=== PATIENT | female | born 1995 | race African-American/Black ===

== ENCOUNTER 2021-06-18 14:53 | Observation (INO) | payer MEDICAID ==
[~2021-06-18] VITALS: Ht 170.2 cm; Wt 72.6 kg
[2021-06-18] MEDS ORDERED: RHO(D) IMMUNE GLOBULIN 300 MCG/SYR IM NR (16:15)
== END 2021-06-18 17:20 | disposition home or self-care (01) ==
LOC: 8 EST LDRP 14:53
PROVIDERS: ADMIT Obstetrics & Gynecology; ATTEND Obstetrics & Gynecology
DX: O26.893 Other specified pregnancy related conditions, third trimester (principal); Z29.13 Encounter for prophylactic Rho(D) immune globulin; Z3A.33 33 weeks gestation of pregnancy
CPT/HCPCS: 36415; 59025; 86850; 86900; 86901; 90384; 96372; G0378; 99281

== ENCOUNTER 2021-08-06 23:20 | Inpatient (IN) | payer MEDICAID ==
[~2021-08-06] VITALS: Ht 170.2 cm; Wt 68.0 kg
[2021-08-07] MEDS: LACTATED RINGERS 1,000 ML IV SCH ×3 (02:57→05:36)
[2021-08-07] MEDS ORDERED: MISOPROSTOL 100MCG TABLET VG PRN (04:00)
[2021-08-07] MEDS ORDERED: RHO(D) IMMUNE GLOBULIN 300 MCG/SYR IM PRN ×2 (04:15→13:15)
[2021-08-07] MEDS ORDERED: DEXT 5%/LACTATED RINGERS 1,000 ML IV SCH (04:15)
[2021-08-07] MEDS ORDERED: LIDOCAINE HCL 1% 20ML VIAL (Pyxis) INJ INFIL NR (04:30)
[2021-08-07 04:35] LABS: CLARITY URINE CLOUDY (CLEAR); COLOR URINE YELLOW (YELLOW); KETONES URINE NEGATIVE (NEGATIVE); LEUKOCYTE ESTERASE URINE 1+ (NEGATIVE); NITRITE URINE NEGATIVE (NEGATIVE); OCCULT BLOOD URINE NEGATIVE (NEGATIVE); PH URINE 6.5 (4.5-8.0); PROTEIN URINE NEGATIVE (NEGATIVE); SPECIFIC GRAVITY URINE 1.013 (1.005-1.030); UROBILINOGEN URINE 0.2 E.U./dL (0.2-1.0)
[2021-08-07 04:42] LABS: BASOPHILS % 0.2 % (0.0-2.0); EOSINOPHILS % 2.1 % (0.0-5.0); HEMATOCRIT. 34.1 % (36.0-48.0); HEMOGLOBIN. 11.3 g/dL (12.0-16.0); LYMPHOCYTES % 27.7 % (20.0-50.0); MEAN CORPUSCULAR HEMOGLOBIN 29.9 pg (28.0-32.0); MEAN CORPUSCULAR VOLUME 90.1 fL (81.0-99.0); MEAN PLATELET VOLUME 7.7 fl (7.4-10.4); MONOCYTES % 14.8 % (2.0-8.0); NEUTROPHILS % 55.2 % (40.0-76.0); PLATELET 355 x1000/uL (130-400); RED BLOOD CELL COUNT 3.78 mill/uL (4.2-5.4); RED CELL DISTRIBUTION WIDTH 13.7 % (11.6-14.6)
[2021-08-07 04:45] LABS: *AMPHETAMINES SCREEN URINE NEGATIVE (NEGATIVE); *BARBITURATES SCREEN URINE NEGATIVE (NEGATIVE); *BENZODIAZEPINES SCREEN URINE NEGATIVE (NEGATIVE)
[2021-08-07 04:46] LABS: *COCAINE SCREEN URINE NEGATIVE (NEGATIVE); CANNABINOID URINE SCREEN NEGATIVE (NEGATIVE); METHADONE URINE SCREEN NEGATIVE (NEGATIVE); OPIATES URINE SCREEN NEGATIVE (NEGATIVE); PHENCYCLIDINE URINE SCREEN NEGATIVE (NEGATIVE)
[2021-08-07 04:51] LABS: INR 0.9; PARTIAL THROMBOPLASTIN TIME 28.4 sec (23.4-31.0)
[2021-08-07] MEDS ORDERED: pnv (05:25)
[2021-08-07 05:31] LABS: HEPATITIS B SURFACE ANTIGEN NEGATIVE
[2021-08-07] MEDS ORDERED: ROPIVACAINE HCL/PF EPIDURAL 200 ML EPI SCH (05:45)
[2021-08-07] MEDS ORDERED: ROPIVACAINE HCL/PF 100ML 100 ML ONE (06:01)
[2021-08-07] MEDS ORDERED: FENTANYL CITRATE/PF 50MCG/ML 2ML VIAL ONE (06:01)
[2021-08-07] MEDS ORDERED: EPHEDRINE SULFATE 50MG/ML VIAL ONE (07:04)
[2021-08-07] MEDS ORDERED: SODIUM CHLORIDE 0.9% 10ML VIAL ONE (07:04)
[2021-08-07] MEDS: DEXT 5%/LR + PITOCIN 20UNITS/L 1,000 ML IV SCH ×2 (08:03→12:33)
[2021-08-07] MEDS ORDERED: BUTORPHANOL TARTRATE 2 MG/ML VIAL IV PRN (12:45)
[2021-08-07] MEDS ORDERED: DIPHENHYDRAMINE 50MG/ML VIAL IV PRN (12:45)
[2021-08-07] MEDS ORDERED: BENZOCAINE/LANOLIN/ALOE VERA SPRAY TOP PRN (13:15)
[2021-08-07] MEDS ORDERED: LANOLIN OINT 7GM TUBE TOP PRN (13:15)
[2021-08-07] MEDS ORDERED: DEXT 5%/LR + PITOCIN 20UNITS/L 1,000 ML IV SCH (13:15)
[2021-08-07] MEDS ORDERED: IBUPROFEN 400MG TABLET PO PRN (13:15)
[2021-08-07 15:00] VITALS: BP 111/72
[2021-08-07 15:30] VITALS: BP 105/66
[2021-08-07 16:00] VITALS: BP 112/68
[2021-08-07 20:00] VITALS: BP 119/85
[2021-08-07] MEDS: IBUPROFEN 800MG TABLET PO PRN (21:42)
[2021-08-08 04:15] VITALS: BP 100/45
[2021-08-08 07:30] LABS: BASOPHILS % 0.2 % (0.0-2.0); EOSINOPHILS % 2.1 % (0.0-5.0); HEMATOCRIT. 31.6 % (36.0-48.0); HEMOGLOBIN. 10.7 g/dL (12.0-16.0); LYMPHOCYTES % 20.2 % (20.0-50.0); MEAN CORPUSCULAR HEMOGLOBIN 30.6 pg (28.0-32.0); MEAN CORPUSCULAR VOLUME 89.9 fL (81.0-99.0); MEAN PLATELET VOLUME 7.5 fl (7.4-10.4); MONOCYTES % 14.1 % (2.0-8.0); NEUTROPHILS % 63.4 % (40.0-76.0); PLATELET 278 x1000/uL (130-400); RED BLOOD CELL COUNT 3.51 mill/uL (4.2-5.4); RED CELL DISTRIBUTION WIDTH 13.9 % (11.6-14.6)
[2021-08-08 07:45] VITALS: BP 109/77
[2021-08-08] MEDS: FERROUS SULFATE 325MG TABLET PO SCH ×2 (07:53→14:02)
[2021-08-08] MEDS: IBUPROFEN 800MG TABLET PO PRN ×2 (07:53→14:02)
[2021-08-08] MEDS ORDERED: PRENATAL VIT/FE FUMARATE/FA TABLET PO SCH (09:00)
== END 2021-08-08 17:20 | disposition home or self-care (01) | DRG 560 ==
LOC: OBSVTOIN 23:20 → 8 EST LDRP 23:20 → 8EST 08-07 14:57
PROVIDERS: ADMIT Obstetrics & Gynecology; ATTEND Obstetrics & Gynecology
PROC: 10E0XZZ Delivery of Products of Conception, External Approach (ICD-10-PCS; principal; 2021-08-07)
PROC: 3E0234Z Introduction of Serum, Toxoid and Vaccine into Muscle, Percutaneous Approach (ICD-10-PCS; 2021-08-08)
DX: O48.0 Post-term pregnancy (principal); Z37.0 Single live birth; O26.893 Other specified pregnancy related conditions, third trimester; Z20.822 Contact with and (suspected) exposure to COVID-19; Z3A.40 40 weeks gestation of pregnancy; Z67.41 Type O blood, Rh negative
CPT/HCPCS: 36415; 76805; 76818; 80305; 81003; 85025; 86592; 86703; 86762; 86850; 86870; 86886; 86900; 87340; 87426; 90384; 99281; J0595; J2590; J2795; J3010; J3490; A4315; J2791